=== PATIENT | male | born 1960 | race Two or more races ===

== ENCOUNTER 2020-11-22 11:59 | Emergency (ER) | payer SELFPAY ==
[~2020-11-22] VITALS: Ht 175.3 cm; Wt 99.8 kg
[2020-11-22 13:35] LABS: Salicylate < 1.7 mg/dL (2.8-20.0)
[2020-11-22 13:57] LABS: Acetaminophen < 2.0 ug/mL (10-30)
[2020-11-22 15:26] LABS: Basophils # (auto) 0.1 10 ^3/uL (0-0.2); Eosinophils # (auto) 0.2 10 ^3/uL (0-0.8); Hemoglobin 7.1 g/dL (13.5-17.5); Monocytes # (auto) 0.4 10 ^3/uL (0-1.3)
[2020-11-22 15:27] LABS: Basophils % (auto) 0.8 % (0.0-2.0); Eosinophils % (auto) 2.1 % (0.0-7.0); Hematocrit 21.6 % (41.0-53.0); Lymphocytes # (auto) 2.1 10 ^3/uL (0.4-5.4); Lymphocytes % (auto) 22.6 % (10.0-50.0); Mean Corpuscular Hemoglobin 23.2 pg (28.0-32.0); Mean Corpuscular Hgb Conc. 32.7 g/dL (32.0-36.0); Monocytes % (auto) 4.8 % (0.0-12.0); Neutrophils # (auto) 6.5 10 ^3/uL (1.6-8.6); Neutrophils % (auto) 69.7 % (37.0-80.0); Nucleated Red Blood Cells % 0.1 %; Red Blood Cells 3.04 10^6/uL (4.5-5.90); Red Cell Distribution Width 17.3 % (11.8-14.3); White Blood Cell 9.3 10^3/uL (4.4-10.8)
[2020-11-22 15:55] LABS: Albumin 2.6 g/dL (3.4-5.0)
[2020-11-22 15:59] LABS: BUN/Creatinine Ratio 13.5; Bilirubin, Total 0.4 mg/dL (0.2-1.0); Total Protein 7.2 g/dL (6.4-8.2)
[2020-11-22] MEDS ORDERED: diphenhdrAMINE HCL 50 MG/1 ML VL ONE (16:55)
[2020-11-22] MEDS ORDERED: HALOPERIDOL LACTATE 5 MG/ML INJ VIAL ONE (16:56)
[2020-11-22] MEDS ORDERED: LORazepam 2MG/ML-1ML VIAL ONE (16:56)
[2020-11-22] MEDS ORDERED: LORazepam 2MG/ML-1ML VIAL IM ONE ×2 (17:00→18:15)
[2020-11-22] MEDS ORDERED: HALOPERIDOL LACTATE 5 MG/ML INJ VIAL IM ONE (17:00)
[2020-11-22] MEDS ORDERED: diphenhdrAMINE HCL 50 MG/1 ML VL IM ONE (17:00)
[2020-11-22 17:47] LABS: Amphetamine Screen, Urine NEGATIVE (NEGATIVE); Barbiturate Scree,Urine NEGATIVE (NEGATIVE); Benzodiazephine Screen, Urine NEGATIVE (NEGATIVE); Cannabinoid Screen, Urine NEGATIVE (NEGATIVE); Cocaine Screen, Urine NEGATIVE (NEGATIVE); Opiate Scree,Urine NEGATIVE (NEGATIVE); Phencyclidine Screen, Urine NEGATIVE (NEGATIVE)
[2020-11-22 18:57] LABS: Urine Bacteria NONE SEEN /hpf (None Seen); Urine Blood TRACE /uL (Negative); Urine Specific Gravity 1.017 (1.001-1.035); Urine WBC 7 /hpf (0 - 3)
[2020-11-23] MEDS ORDERED: METOPROLOL TARTRATE 1MG/1ML-5ML VIAL IV SCH (04:30)
[2020-11-23] MEDS ORDERED: SODIUM CHLORIDE 0.9% 2,000 ML IV ONE (04:30)
[2020-11-23] MEDS: METOPROLOL TARTRATE 1MG/1ML-5ML VIAL IV SCH ×3 (04:35→05:14)
[2020-11-23 06:20] VITALS: BP 155/63
== END 2020-11-23 06:44 | disposition home or self-care (01) ==
LOC: ER 11:59 → EDBD 11:59 → ER 11-23 06:38
DX: F03.90 Unspecified dementia, unspecified severity, without behavioral disturbance, psychotic disturbance, mood disturbance, and anxiety (principal); F60.89 Other specific personality disorders; R07.89 Other chest pain; F32.9 Major depressive disorder, single episode, unspecified; E11.9 Type 2 diabetes mellitus without complications; Z86.73 Personal history of transient ischemic attack (TIA), and cerebral infarction without residual deficits; Z88.1 Allergy status to other antibiotic agents; Z88.8 Allergy status to other drugs, medicaments and biological substances
CPT/HCPCS: 36415; 80053; 80307; 80329; 81001; 82962; 85025; 85049; 93005; 96360; 96372; 99285; J1200; J1630; J2060; J7030